=== PATIENT | female | born 1950 | race American Indian/Alaskan Native ===

== ENCOUNTER 2017-07-23 19:38 | Inpatient (IN) | payer MEDICARE ==
[2017-07-23] MEDS ORDERED: TYLENOL PO ONE (20:20)
[2017-07-23] MEDS ORDERED: TYLENOL ONE (20:23)
[2017-07-23 20:40] LABS: Basophils % (Auto) 0.2 % (0.0-1.8); Eosinophils % (Auto) 0.1 % (0.0-4.3); Hemoglobin 11.6 gm/dl (10.1-14.3); Mean Corpuscular HGB Conc 32 % (30-34); Mean Corpuscular Hemoglobin 30 pg (28-32); Mean Corpuscular Volume 92 fl (79-97); Platelet Count 253 K/mm3 (140-440); Red Blood Count 3.92 M/mm3 (3.65-5.03); Red Cell Distribution Width 13.4 % (13.2-15.2); White Blood Count 11.8 K/mm3 (4.5-11.0)
[2017-07-23 20:56] LABS: Alanine Aminotransferase 20 units/L (7-56); Albumin 3.8 g/dL (3.9-5); Alkaline Phosphatase 61 units/L (35-129); Anion Gap 17 mmol/L; BUN/Creatinine Ratio 18; Blood Urea Nitrogen 11 mg/dL (7-17); Calcium 8.8 mg/dL (8.4-10.2); Carbon Dioxide 27 mmol/L (22-30); Chloride 98.2 mmol/L (98-107); Glucose 118 mg/dL (65-100); Potassium 4.1 mmol/L (3.6-5.0); Sodium 138 mmol/L (137-145); Total Protein 7.6 g/dL (6.3-8.2)
--- NOTE | 2017-07-23 21:49 | Cat Scan Report ---
FINAL REPORT PROCEDURE: CT HEAD/BRAIN WO CON TECHNIQUE: Computerized tomography of the head was performed without contrast material. HISTORY: headache COMPARISON: No prior studies are available for comparison. FINDINGS: Minimal mucosal thickening is seen in the right maxillary sinus with more prominent mucosal thickening in the right frontal sinus. Mastoid air cells are clear. Mild calcifications are seen in the distal ICAs. No calvarial fracture is seen. Cerebral ventricles are normal in size. Moderate confluent hypodensities are seen in the posterior supratentorial white matter and, to a lesser degree, the frontal white matter. Findings may be due to subacute to chronic small vessel ischemic changes but consideration should be given to posterior reversible encephalopathy syndrome, also. A demyelinating process, such as ADEM, would be another possible etiology. No mass effect or acute intracranial hemorrhage is seen. IMPRESSION: Moderate hypodensities are seen in the supratentorial white matter, being confluent in the periatrial regions. Findings may be due to subacute to chronic small vessel ischemic changes. However, consideration should be given to posterior reversible encephalopathy syndrome and ADEM. Changes of right frontal sinusitis are seen.
--- NOTE | 2017-07-23 22:01 | Cat Scan Report ---
FINAL REPORT PROCEDURE: CT CERVICAL SPINE WO CON TECHNIQUE: Computerized tomography of the cervical spine was performed from the skull base to T1 without contrast material. HISTORY: neck pain COMPARISON: No prior studies are available for comparison. FINDINGS: Cervical lordosis is preserved. Mild Schmorl's node formation is seen in the superior endplates of and C7. No significant bony central canal or neural foraminal stenosis is seen. There is no subluxation. No prevertebral edema is seen. No C-spine fracture is seen. IMPRESSION: Minimal arthritic changes are seen without evidence of significant stenosis.
[2017-07-24] MEDS ORDERED: REGLAN IV ONE (03:57)
[2017-07-24] MEDS ORDERED: BENADRYL IV ONE (03:57)
[2017-07-24 04:32] LABS: Bacteria,Urine 1+ /HPF (Negative); Bilirubin,Urine NEG (Negative); Blood,Urine SM (Negative); Ketones,Urine NEG (Negative); Leukocyte Esterase,Urine NEG (Negative); Mucus,Urine 1+ /HPF; Nitrite,Urine NEG (Negative); Protein,Urine <15 mg/dL mg/dL (Negative); Urobilinogen,Urine < 2.0 mg/dL (<2.0)
[2017-07-24] MEDS ORDERED: SUBLIMAZE IV ONE (05:06)
--- NOTE | 2017-07-24 06:02 | Emergency Department Report ---
ED General Adult HPI - General Chief complaint: Fever Stated complaint: HEAD/BACK PAIN Time Seen by Provider: 07/24/17 03:50 Source: patient Mode of arrival: Ambulatory Limitations: No Limitations - History of Present Illness Initial comments: Patient is a 67-year-old female has not history of osteoporosis who presents with weakness and fatigue and head and shoulder pain. Patient states symptoms have been going on for the last week. She states that she is filled fatigue and has intermittent fevers that have been going on. She says she has been feeling some really bad neck and shoulder pain she states that the neck and shoulder pain as a 7 out of 10 nothing makes the shoulder and neck pain better or worse. It is a sore type of pain she denies having any nausea or vomiting. Severity scale (0 -10): 10 - Related Data Home Medications Medication Instructions Recorded Confirmed Last Taken Ibandronate Sodium 1 tab PO QMONTH 07/23/17 07/23/17 Unknown amLODIPine 5 mg PO DAILY 07/23/17 07/23/17 Unknown Allergies Allergy/AdvReac Type Severity Reaction Status Date / Time iodine Allergy Itching Verified 07/24/17 03:46 ED Review of Systems ROS: Stated complaint: HEAD/BACK PAIN Other details as noted in HPI Constitutional: fever. denies: chills Eyes: denies: eye pain, eye discharge, vision change ENT: denies: ear pain, throat pain Respiratory: denies: cough, shortness of breath, wheezing Cardiovascular: denies: chest pain, palpitations Endocrine: no symptoms reported Gastrointestinal: denies: abdominal pain, nausea, diarrhea Genitourinary: denies: urgency, dysuria, discharge Musculoskeletal: other (neck pain ). denies: back pain, joint swelling, arthralgia Skin: denies: rash, lesions Neurological: denies: headache, weakness, paresthesias Psychiatric: denies: anxiety, depression Hematological/Lymphatic: denies: easy bleeding, easy bruising ED Past Medical Hx - Past Medical History Hx Hypertension: Yes Additional medical history: Osteoporosis - Surgical History Additional Surgical History: Hysterectomy - Social History Smoking Status: Never Smoker Substance Use Type: None - Medications Home Medications: Home Medications Medication Instructions Recorded Confirmed Last Taken Type Ibandronate Sodium 1 tab PO QMONTH 07/23/17 07/23/17 Unknown History amLODIPine 5 mg PO DAILY 07/23/17 07/23/17 Unknown History ED Physical Exam - General Limitations: No Limitations General appearance: alert, in no apparent distress - Head Head exam: Present: atraumatic, normocephalic - Eye Eye exam: Present: normal appearance - ENT ENT exam: Present: mucous membranes moist - Neck Neck exam: Present: normal inspection - Respiratory Respiratory exam: Present: normal lung sounds bilaterally. Absent: respiratory distress - Cardiovascular Cardiovascular Exam: Present: regular rate, normal rhythm. Absent: systolic murmur, diastolic murmur, rubs, gallop - GI/Abdominal GI/Abdominal exam: Present: soft, normal bowel sounds - Extremities Exam Extremities exam: Present: normal inspection - Back Exam Back exam: Present: normal inspection - Neurological Exam Neurological exam: Present: alert, oriented X3 - Psychiatric Psychiatric exam: Present: normal affect, normal mood - Skin Skin exam: Present: warm, dry, intact, normal color. Absent: rash ED Course Vital Signs 07/23/17 07/24/17 07/24/17 20:06 03:38 03:39 Temperature 101.9 F H 98.8 F Pulse Rate 111 H 78 Respiratory 20 20 20 Rate Blood Pressure 141/82 Blood Pressure 153/103 [Left] O2 Sat by Pulse 98 99 99 Oximetry 07/24/17 05:32 Temperature Pulse Rate Respiratory 20 Rate Blood Pressure Blood Pressure [Left] O2 Sat by Pulse Oximetry ED Medical Decision Making - Lab Data Result diagrams: 07/23/17 20:24 07/23/17 20:24 Lab Results 07/23/17 07/23/17 07/24/17 Range/Units 20:24 20:24 04:02 WBC 11.8 H (4.5-11.0) K/mm3 RBC 3.92 (3.65-5.03) M/mm3 Hgb 11.6 (10.1-14.3) gm/dl Hct 36.0 (30.3-42.9) % MCV 92 (79-97) fl MCH 30 (28-32) pg MCHC 32 (30-34) % RDW 13.4 (13.2-15.2) % Plt Count 253 (140-440) K/mm3 Lymph % (Auto) 16.2 (13.4-35.0) % [place] % (Auto) 10.9 H (0.0-7.3) % Eos % (Auto) 0.1 (0.0-4.3) % Baso % (Auto) 0.2 (0.0-1.8) % Lymph # 1.9 (1.2-5.4) K/mm3 [place] # 1.3 H (0.0-0.8) K/mm3 Eos # 0.0 (0.0-0.4) K/mm3 Baso # 0.0 (0.0-0.1) K/mm3 Seg Neutrophils % 72.6 H (40.0-70.0) % Seg Neutrophils # 8.6 H (1.8-7.7) K/mm3 Sodium 138 (137-145) mmol/L Potassium 4.1 (3.6-5.0) mmol/L Chloride 98.2 (98-107) mmol/L Carbon Dioxide 27 (22-30) mmol/L Anion Gap 17 mmol/L BUN 11 (7-17) mg/dL Creatinine 0.6 L (0.7-1.2) mg/dL Estimated GFR > 60 ml/min BUN/Creatinine Ratio 18 % Glucose 118 H (65-100) mg/dL Calcium 8.8 (8.4-10.2) mg/dL Total Bilirubin 0.70 (0.1-1.2) mg/dL AST 21 (5-40) units/L ALT 20 (7-56) units/L Alkaline Phosphatase 61 (35-129) units/L Total Protein 7.6 (6.3-8.2) g/dL Albumin 3.8 L (3.9-5) g/dL Albumin/Globulin Ratio 1.0 % Urine Color Yellow (Yellow) Urine Turbidity Clear (Clear) Urine pH 5.0 (5.0-7.0) Ur Specific [place] 1.013 (1.003-1.030) Urine Protein <15 mg/dl (Negative) mg/dL Urine Glucose (UA) Neg (Negative) mg/dL Urine Ketones Neg (Negative) mg/dL Urine Blood Sm (Negative) Urine Nitrite Neg (Negative) Urine Bilirubin Neg (Negative) Urine Urobilinogen < 2.0 (<2.0) mg/dL Ur Leukocyte Esterase Neg (Negative) Urine WBC (Auto) 2.0 (0.0-6.0) /HPF Urine RBC (Auto) 2.0 (0.0-6.0) /HPF U Epithel Cells (Auto) 1.0 (0-13.0) /HPF Urine Bacteria (Auto) 1+ (Negative) /HPF Urine Mucus 1+ /HPF - Radiology Data Radiology results: image reviewed Chest x-ray: Shows no acute cardiopulmonary disease - Medical Decision Making Cdx: Viral illness Differential medical diagnosis: UTI, pneumonia, cellulitis CBC, CMP, IV fluids, IV pain medication, Reglan and Benadryl, blood cultures, acetaminophen ESR and CRP She is still in pain and still feels weak despite IV pain medication and IV fluids. I will admit patient to the hospitalist service due to having fever of unknown origin. I'll add on an ESR and CRP. Discussed plan with Dr. Limon with agrees With plan. Critical care attestation.: If time is entered above; I have spent that time in minutes in the direct care of this critically ill patient, excluding procedure time. ED Disposition Clinical Impression: Tension headache, Weakness Fever Qualifiers: Fever type: unspecified Qualified Code(s): R50.9 - Fever, unspecified Shoulder pain Qualifiers: Chronicity: acute Laterality: bilateral Qualified Code(s): M25.511 - Pain in right shoulder; M25.512 - Pain in left shoulder; M25.512 - Pain in left shoulder Disposition: DC-09 OP ADMIT IP TO THIS HOSP Is pt being admited?: No Does the pt Need Aspirin: No Condition: Stable Referrals: PRIMARY CARE, [Primary Care Provider] - 3-5 Days
[2017-07-24] MEDS ORDERED: NACL 0.9% 500 ML 500 ML IV ONE (06:09)
--- NOTE | 2017-07-24 07:54 | History and Physical Report ---
History of Present Illness Date of examination: 07/24/17 Date of admission: 07/24/17 Chief complaint: Fever,gen body pains History of present illness: Very pleasant 67-year-old -[place] female patient presented to the emergency room. Fever and generalized body pains headache backache intermittent for the last 1 week Patient denies any chest pain or shortness of breath Denies nausea or vomiting or abdominal pain Complaints of generalized weakness Noted to be febrile in the emergency room CT head without contrast show subacute to chronic small vessel ischemic changes , consistent with possible and we'll put the syndrome, and frontal sinusitis Chest x-ray negative Patient denies of nausea or vomiting next stiffness At the time of my evaluation patient is afebrile, alert awake oriented 3 Past History Past Medical History: other (osteoporosis) Past Surgical History: Other (tubal ligation) Social history: lives with family, full code. denies: smoking, alcohol abuse, prescription drug abuse Family history: hypertension Medications and Allergies Allergies Allergy/AdvReac Type Severity Reaction Status Date / Time iodine Allergy Itching Verified 07/24/17 03:46 Home Medications Medication Instructions Recorded Confirmed Last Taken Type Ibandronate Sodium 1 tab PO QMONTH 07/23/17 07/23/17 Unknown History amLODIPine 5 mg PO DAILY 07/23/17 07/23/17 Unknown History Active Meds: Active Medications Acetaminophen (Tylenol) 650 mg PO Q4H PRN PRN Reason: Pain, Mild (1-3) Enoxaparin Sodium (Lovenox) 40 mg SUB-Q QDAY@1000 MARCO Levofloxacin/Dextrose (Levaquin 750mg/150ml) 750 mg in 150 mls @ 100 mls/hr IV Q24HR MARCO PRN Reason: Protocol Sodium Chloride (Nacl 0.9% 1000 Ml) 1,000 mls @ 100 mls/hr IV DIRECT [facility] Review of Systems Constitutional: fever, weakness, no weight loss, no weight gain Ears, nose, mouth and throat: sinus pressure, no nasal congestion, no nasal discharge Cardiovascular: no chest pain, no palpitations Respiratory: no cough, no shortness of breath Gastrointestinal: no abdominal pain, no nausea, no vomiting Genitourinary Female: dysuria, no hematuria Musculoskeletal: no neck stiffness, no myalgias, no arthritis Integumentary: no rash, no lesions Neurological: no paralysis, no seizures Psychiatric: no anxiety, no depression Endocrine: no cold intolerance, no heat intolerance, no polydipsia, no polyuria Hematologic/Lymphatic: no easy bruising, no easy bleeding Allergic/Immunologic: no urticaria, no allergic rhinitis Exam - Constitutional Vitals: Temp Pulse Resp BP Pulse Ox 98.9 F 80 20 117/59 97 07/24/17 06:28 07/24/17 06:28 07/24/17 06:28 07/24/17 06:28 07/24/17 06:28 General appearance: Present: no acute distress, well-nourished - EENT Eyes: Present: PERRL, EOM intact - Neck Neck: Present: supple, normal ROM - Respiratory Respiratory effort: normal Respiratory: negative: rales, rhonchi, wheezing - Cardiovascular Rhythm: regular Heart Sounds: Present: S1 & S2 - Extremities Extremities: no ischemia, No edema - Abdominal General gastrointestinal: Present: soft, non-tender, non-distended, normal bowel sounds - Integumentary Integumentary: Present: clear, warm - Musculoskeletal Musculoskeletal: strength equal bilaterally - Psychiatric Psychiatric: appropriate mood/affect, cooperative - Neurologic Neurologic: CNII-XII intact, moves all extremities Results - Labs CBC & Chem 7: 07/23/17 20:24 07/23/17 20:24 Labs: Abnormal lab results 07/23/17 07/23/17 07/24/17 Range/Units 20:24 20:24 06:31 WBC 11.8 H (4.5-11.0) K/mm3 [place] % (Auto) 10.9 H (0.0-7.3) % [place] # 1.3 H (0.0-0.8) K/mm3 Seg Neutrophils % 72.6 H (40.0-70.0) % Seg Neutrophils # 8.6 H (1.8-7.7) K/mm3 Creatinine 0.6 L (0.7-1.2) mg/dL Glucose 118 H (65-100) mg/dL C-Reactive Protein 3.90 H (0.00-1.30) mg/dL Albumin 3.8 L (3.9-5) g/dL Assessment and Plan -- Febrile illness; probably vital syndrome, probably secondary to urinary tract infection Antipyretics, blood cultures urine cultures, empiric antibiotics and supportive care --SIRS; supportive care, IV fluids, cultures --UTI; empiric antibiotics, follow cultures --Leukocytosis; secondary to UTI --DVT prophylaxis with Lovenox Closely monitor the patient and adjust management as needed Plan of care discussed with the patient as well as her nurse
--- NOTE | 2017-07-24 09:08 | XRay Report ---
Single view chest: History: Cough. Findings: Borderline cardiomegaly. Trachea is midline. No consolidation, pneumothorax or pleural effusion. Impression: No acute cardiopulmonary findings.
[2017-07-24] MEDS ORDERED: MILK OF MAGNESIA PO ONE (09:46)
[2017-07-24] MEDS ORDERED: MILK OF MAGNESIA PO PRN (09:47)
[2017-07-24] MEDS: NACL 0.9% 1000 ML 1,000 ML IV SCH (10:00)
[2017-07-24] MEDS ORDERED: LOVENOX SUB-Q SCH (10:00)
[2017-07-24] MEDS: LOVENOX SUB-Q SCH (10:28)
[2017-07-24] MEDS: LEVAQUIN 750MG/150ML 750 MG/150 ML BAG IV SCH (10:28)
[2017-07-24] MEDS ORDERED: AMBIEN PO PRN (19:54)
[2017-07-25] MEDS: TYLENOL PO PRN ×3 (03:22→23:11)
[2017-07-25] MEDS: NACL 0.9% 1000 ML 1,000 ML IV SCH ×2 (03:23→15:57)
[2017-07-25 05:50] LABS: Basophils % (Auto) 0.6 % (0.0-1.8); Eosinophils % (Auto) 0.3 % (0.0-4.3); Hematocrit 30.2 % (30.3-42.9); Hemoglobin 10.6 gm/dl (10.1-14.3); Mean Corpuscular HGB Conc 35 % (30-34); Mean Corpuscular Hemoglobin 32 pg (28-32); Mean Corpuscular Volume 90 fl (79-97); Platelet Count 236 K/mm3 (140-440); Red Blood Count 3.35 M/mm3 (3.65-5.03); Red Cell Distribution Width 13.1 % (13.2-15.2); White Blood Count 7.9 K/mm3 (4.5-11.0)
[2017-07-25 05:59] LABS: Anion Gap 14 mmol/L; BUN/Creatinine Ratio 16; Blood Urea Nitrogen 8 mg/dL (7-17); Calcium 8.3 mg/dL (8.4-10.2); Carbon Dioxide 27 mmol/L (22-30); Chloride 103.3 mmol/L (98-107); Glucose 95 mg/dL (65-100); Potassium 3.8 mmol/L (3.6-5.0); Sodium 140 mmol/L (137-145)
[2017-07-25] MEDS: LOVENOX SUB-Q SCH (10:29)
[2017-07-25] MEDS: LEVAQUIN 750MG/150ML 750 MG/150 ML BAG IV SCH (10:29)
--- NOTE | 2017-07-25 17:35 | Progress Note ---
Assessment and Plan Assessment and plan: --Sepsis secondary to urinary tract infection Continue current antibiotics, follow cultures, continue IV fluids, encourage plenty ordered foods -- Febrile illness; secondary to urinary tract infection, low-grade fever Supportive care --SIRS; supportive care, IV fluids, cultures negative so far --Leukocytosis; secondary to UTI, trending down --DVT prophylaxis with Lovenox Ambulate as tolerated Possible discharge tomorrow if stable on oral antibiotics for total 10 days Plan of care discussed with the patient and her nurse History Interval history: Patient seen and examined in her room this morning Medical records reviewed Feels better, low-grade fever, denies nausea or vomiting Alert awake oriented 3 not in acute distress Vital signs reviewed Hospitalist Physical - Constitutional Vitals: Temp Pulse Resp BP Pulse Ox 98.2 F 96 H 18 142/76 98 07/25/17 12:17 07/25/17 16:49 07/25/17 16:49 07/25/17 16:49 07/25/17 16:49 General appearance: Present: no acute distress, well-nourished - EENT Eyes: Present: PERRL, EOM intact - Neck Neck: Present: supple, normal ROM - Respiratory Respiratory effort: normal Respiratory: bilateral: diminished, negative: rales, rhonchi, wheezing - Cardiovascular Rhythm: regular Heart Sounds: Present: S1 & S2 - Extremities Extremities: no ischemia, No edema Peripheral Pulses: within normal limits - Abdominal General gastrointestinal: soft, non-tender, non-distended, normal bowel sounds - Integumentary Integumentary: Present: clear, warm - Psychiatric Psychiatric: appropriate mood/affect, cooperative - Neurologic Neurologic: CNII-XII intact, moves all extremities Results - Labs CBC & Chem 7: 07/25/17 05:22 07/25/17 05:22 Labs: Laboratory Last Values WBC 7.9 K/mm3 (4.5-11.0) 07/25/17 05:22 RBC 3.35 M/mm3 (3.65-5.03) L 07/25/17 05:22 Hgb 10.6 gm/dl (10.1-14.3) 07/25/17 05:22 Hct 30.2 % (30.3-42.9) L 07/25/17 05:22 MCV 90 fl (79-97) 07/25/17 05:22 MCH 32 pg (28-32) 07/25/17 05:22 MCHC 35 % (30-34) H 07/25/17 05:22 RDW 13.1 % (13.2-15.2) L 07/25/17 05:22 Plt Count 236 K/mm3 (140-440) 07/25/17 05:22 Lymph % (Auto) 26.8 % (13.4-35.0) 07/25/17 05:22 [place] % (Auto) 13.4 % (0.0-7.3) H 07/25/17 05:22 Eos % (Auto) 0.3 % (0.0-4.3) 07/25/17 05:22 Baso % (Auto) 0.6 % (0.0-1.8) 07/25/17 05:22 Lymph # 2.1 K/mm3 (1.2-5.4) 07/25/17 05:22 [place] # 1.1 K/mm3 (0.0-0.8) H 07/25/17 05:22 Eos # 0.0 K/mm3 (0.0-0.4) 07/25/17 05:22 Baso # 0.0 K/mm3 (0.0-0.1) 07/25/17 05:22 Seg Neutrophils % 58.9 % (40.0-70.0) 07/25/17 05:22 Seg Neutrophils # 4.7 K/mm3 (1.8-7.7) 07/25/17 05:22 ESR 65 mm/Hr (0-20) 07/24/17 06:31 Sodium 140 mmol/L (137-145) 07/25/17 05:22 Potassium 3.8 mmol/L (3.6-5.0) 07/25/17 05:22 Chloride 103.3 mmol/L (98-107) 07/25/17 05:22 Carbon Dioxide 27 mmol/L (22-30) 07/25/17 05:22 Anion Gap 14 mmol/L 07/25/17 05:22 BUN 8 mg/dL (7-17) 07/25/17 05:22 Creatinine 0.5 mg/dL (0.7-1.2) L 07/25/17 05:22 Estimated GFR > 60 ml/min 07/25/17 05:22 BUN/Creatinine Ratio 16 % 07/25/17 05:22 Glucose 95 mg/dL (65-100) 07/25/17 05:22 Lactic Acid 1.50 mmol/L (0.7-2.0) 07/24/17 08:46 Calcium 8.3 mg/dL (8.4-10.2) L 07/25/17 05:22 Total Bilirubin 0.70 mg/dL (0.1-1.2) 07/23/17 20:24 AST 21 units/L (5-40) 07/23/17 20:24 ALT 20 units/L (7-56) 07/23/17 20:24 Alkaline Phosphatase 61 units/L (35-129) 07/23/17 20:24 Troponin T < 0.010 ng/mL (0.00-0.029) 07/24/17 06:31 C-Reactive Protein 3.90 mg/dL (0.00-1.30) H 07/24/17 06:31 Total Protein 7.6 g/dL (6.3-8.2) 07/23/17 20:24 Albumin 3.8 g/dL (3.9-5) L 07/23/17 20:24 Albumin/Globulin Ratio 1.0 % 07/23/17 20:24 Urine Color Yellow (Yellow) 07/24/17 04:02 Urine Turbidity Clear (Clear) 07/24/17 04:02 Urine pH 5.0 (5.0-7.0) 07/24/17 04:02 Ur Specific [place] 1.013 (1.003-1.030) 07/24/17 04:02 Urine Protein <15 mg/dl mg/dL (Negative) 07/24/17 04:02 Urine Glucose (UA) Neg mg/dL (Negative) 07/24/17 04:02 Urine Ketones Neg mg/dL (Negative) 07/24/17 04:02 Urine Blood Sm (Negative) 07/24/17 04:02 Urine Nitrite Neg (Negative) 07/24/17 04:02 Urine Bilirubin Neg (Negative) 07/24/17 04:02 Urine Urobilinogen < 2.0 mg/dL (<2.0) 07/24/17 04:02 Ur Leukocyte Esterase Neg (Negative) 07/24/17 04:02 Urine WBC (Auto) 2.0 /HPF (0.0-6.0) 07/24/17 04:02 Urine RBC (Auto) 2.0 /HPF (0.0-6.0) 07/24/17 04:02 U Epithel Cells (Auto) 1.0 /HPF (0-13.0) 07/24/17 04:02 Urine Bacteria (Auto) 1+ /HPF (Negative) 07/24/17 04:02 Urine Mucus 1+ /HPF 07/24/17 04:02
[2017-07-26] MEDS: NACL 0.9% 1000 ML 1,000 ML IV SCH (05:26)
--- NOTE | 2017-07-26 07:41 | Discharge Summary ---
Providers - Providers Date of Admission: 07/24/17 05:39 Date of discharge: 07/26/17 Attending physician: KENDAL GANN Primary care physician: TIP CEMENTER Hospitalization Condition: Stable Disposition: DC-01 TO HOME OR SELFCARE Core Measure Documentation - Palliative Care Palliative Care/ Comfort Measures: Not Applicable - Core Measures Any of the following diagnoses?: none Exam - Constitutional Vitals: Temp Pulse Resp BP Pulse Ox 98.6 F 78 18 129/74 99 07/26/17 04:13 07/26/17 04:13 07/26/17 04:13 07/26/17 04:13 07/26/17 04:13 Plan Activity: no restrictions Diet: regular Additional Instructions: If you have chest pain or shortness of breath, contact M.D. or go to emergency room Follow up with: PRIMARY CARE, [Primary Care Provider] - 3-5 Days Prescriptions: Ciprofloxacin HCl [Ciprofloxacin TAB] 500 mg PO BID #10 tablet
[2017-07-26] MEDS: LOVENOX SUB-Q SCH (09:08)
[2017-07-26 09:42] VITALS: BP 143/69
[2017-07-26] MEDS ORDERED: LEVAQUIN PO SCH (10:00)
== END 2017-07-26 11:20 | disposition home or self-care (01) | DRG 872 ==
LOC: ED 19:38 → 4A 07-24 05:39
PROVIDERS: ADMIT Internal Medicine; ATTEND Internal Medicine
DX: A41.9 Sepsis, unspecified organism (principal); N39.0 Urinary tract infection, site not specified; M81.0 Age-related osteoporosis without current pathological fracture; Z91.041 Radiographic dye allergy status; Z79.899 Other long term (current) drug therapy; Z90.710 Acquired absence of both cervix and uterus; Z98.51 Tubal ligation status
CPT/HCPCS: 36415; 70450; 71010; 72125; 80048; 80053; 81001; 82140; 84484; 85025; 85652; 86140; 87040; 87086; 93005; 93010; 96374; 96375; J1200; J1650; J1956; J2765; J3010; J7030; J7040